=== PATIENT | female | born 1935 | race Caucasian/White ===

== ENCOUNTER 2016-08-08 10:17 | Emergency (ER) | payer MEDICARE ==
[~2016-08-08] VITALS: Ht 167.6 cm; Wt 75.3 kg
[~2016-08-08 10:17] MED LIST: ALLO300T PO; AMIO200T2 PO; ASPI-482 PO; LOSA50TA6 PO; MAGN400T3 PO; METF500T4 PO; METF500T9 PO; METO100T2 PO; METO50TA2 PO; POTA10CA PO; TRIA1CAP3 PO; VITA400C36 PO; WARF2.5T PO
--- NOTE | 2016-08-08 10:41 | EKG ---
[facility] [address] [place] [address] Test Date: 2016-08-08 Test Time: 10:33:48 Pat Name: STEFFEN MORALES Department: Room: Gender: F [employer]: : [id number] Requested By: Yvette MCDONALD Order Number: [id number] Reading MD: Kathi Veliz Measurements Intervals [place] Rate: 54 P: 41 [place]: 176 QRS: -38 QRSD: 90 T: 55 QT: 496 QTc: 472 Interpretive Statements SINUS RHYTHM LEFT ATRIAL ABNORMALITY LEFT ANTERIOR FASCICULAR BLOCK ABNORMAL ECG Electronically Signed On 08-11-2016 15:51:40 CDT by Kathi Veliz
[2016-08-08] MEDS ORDERED: IV NORMAL SALINE 500ML BAG 500 ML IV ONE (11:00)
[2016-08-08] MEDS ORDERED: ONDANSETRON PF 4 MG/2 ML VIAL. IV ONE (11:00)
--- NOTE | 2016-08-08 11:07 | PHYS DOC ---
Past Medical History Past Medical History: A-Fib, CHF, Diabetes-Type II, High Cholesterol, Hypertension Past Surgical History: Angioplasty, Appendectomy, Cholecystectomy, Hysterectomy , Other Additional Past Surgical Histo: STENTS,THYROID REMOVAL,EGD W/ DILATION,MASS REMOVED FROM ESOPHAGUS Alcohol Use: None Drug Use: None Adult General Chief Complaint Chief Complaint: DIZZY/LIGHT HEADED HPI HPI Patient is a 81 year old female who presents with that her for evaluation of nausea and vomiting over the past 2 days. She has one week of worsening chronic cough as well. She also notes months of intermittent dizziness that is being worked up outpatient. States her dizziness is slightly worse today after multiple episodes of emesis. She has slight fatigue. Emesis is nonbloody and nonbilious. She denies dyspnea, abdominal pain, chest pain, palpitations, diaphoresis, headache, vision changes, numbness, tingling, focal weakness, diarrhea, dysuria, fever or chills. Review of Systems Review of Systems Constitutional: Denies fever or chills [] Eyes: Denies change in visual acuity, redness, or eye pain [] HENT: Denies nasal congestion or sore throat [] Respiratory: Denies shortness of breath [] Cardiovascular: No additional information not addressed in HPI [] GI: Denies abdominal pain, bloody stools or diarrhea [] : Denies dysuria or hematuria [] Musculoskeletal: Denies back pain or joint pain [] Integument: Denies rash or skin lesions [] Neurologic: Denies headache, focal weakness or sensory changes [] Endocrine: Denies polyuria or polydipsia [] Current Medications Current Medications Current Medications Medications (Trade) Dose Ordered Sig/Marly Start Time Stop Time Status Last Admin Dose Admin Ondansetron HCl 4 mg 4 mg 1X ONCE 08/08/16 11:00 08/08/16 11:01 DC 08/08/16 11:29 4 MG Sodium Chloride (Iv Sodium Chloride 0.9% 500ml Bag) 500 ml @ 500 mls/hr 1X ONCE 08/08/16 11:00 08/08/16 11:59 DC 08/08/16 11:29 500 MLS/HR Allergies Allergies Allergies Coded Allergies Type Severity Reaction Last Updated Verified morphine Adverse Reaction Intermediate Nausea; SEE COMMENT 11/21/14 Yes Physical Exam Physical Exam Constitutional: Well developed, well nourished, no acute distress, non-toxic appearance. [] HENT: Normocephalic, atraumatic, bilateral external ears normal, oropharynx moist, no oral exudates, nose normal. [] Eyes: PERRLA, EOMI, conjunctiva normal, no discharge. [] Neck: Normal range of motion, no tenderness, supple, no stridor. [] Cardiovascular:Heart rate regular rhythm [] Lungs & Thorax: Bilateral breath sounds clear to auscultation [] Abdomen: Bowel sounds normal, soft, no tenderness. [] Skin: Warm, dry, no erythema, no rash. [] Back: Normal range of motion. [] Extremities: No tenderness, ROM intact, no edema. [] Neurologic: Alert and oriented X 3, normal motor function, normal sensory function, no focal deficits noted, cranial nerves II through XII intact, no nystagmus. [] Psychologic: Affect normal, judgement normal, mood normal. [] Current Patient Data Vital Signs Vital Signs Date Time Temp Pulse Resp B/P Pulse Ox O2 Delivery O2 Flow Rate FiO2 08/08/16 11:05 44 22 200/81 95 Room Air 08/08/16 10:20 96.3 96.3 Lab Values Laboratory Tests Test 08/08/16 10:55 White Blood Count 5.2x10^3/uL (4.0-11.0) Red Blood Count 4.04x10^6/uL (3.50-5.40) Hemoglobin 11.5g/dL (12.0-15.5) L Hematocrit 33.9% (36.0-47.0) L Mean Corpuscular Volume 84fL (79-100) Mean Corpuscular Hemoglobin 29pg (25-35) Mean Corpuscular Hemoglobin Concent 34g/dL (31-37) Red Cell Distribution Width 16.7% (11.5-14.5) H Platelet Count 166x10^3/uL (140-400) Neutrophils (%) (Auto) 69% (31-73) Lymphocytes (%) (Auto) 19% (24-48) L Monocytes (%) (Auto) 11% (0-9) H Eosinophils (%) (Auto) 0% (0-3) Basophils (%) (Auto) 1% (0-3) Neutrophils # (Auto) 3.6x10^3uL (1.8-7.7) Lymphocytes # (Auto) 1.0x10^3/uL (1.0-4.8) Monocytes # (Auto) 0.6x10^3/uL (0.0-1.1) Eosinophils # (Auto) 0.0x10^3/uL (0.0-0.7) Basophils # (Auto) 0.0x10^3/uL (0.0-0.2) Sodium Level 124mmol/L (136-145) L Potassium Level 3.5mmol/L (3.5-5.1) Chloride Level 86mmol/L (98-107) L Carbon Dioxide Level 29mmol/L (21-32) Anion Gap 9 (6-14) Blood Urea Nitrogen 24mg/dL (7-20) H Creatinine 1.3mg/dL (0.6-1.0) H Estimated GFR (Cockcroft-Gault) 39.3 Glucose Level 102mg/dL (70-99) H Calcium Level 9.2mg/dL (8.5-10.1) Total Bilirubin 0.7mg/dL (0.2-1.0) Direct Bilirubin 0.2mg/dL (0.0-0.2) Aspartate Amino Transferase (AST) 21U/L (15-37) Alanine Aminotransferase (ALT) 22U/L (14-59) Alkaline Phosphatase 91U/L (46-116) Total Protein 7.6g/dL (6.4-8.2) Albumin 4.0g/dL (3.4-5.0) Lipase 211U/L (73-393) Laboratory Tests 08/08/16 10:55 Laboratory Tests 08/08/16 10:55 EKG EKG EKG as interpreted by me as normal sinus rhythm, rate 54, no ST-T changes, normal intervals, no ectopy Radiology/Procedures Radiology/Procedures Chest xray as interpreted by me with no acute cardiopulmonary disease process Course & Med Decision Making Course & Med Decision Making Pertinent Labs and Imaging studies reviewed. (See chart for details) Workup is unremarkable. She is feeling better after medications and would like to go home. Return precautions given. She understands and agrees with plan. Dragon Disclaimer Dragon Disclaimer This electronic medical record was generated, in whole or in part, using a voice recognition dictation system. Departure Departure Impression: Primary Impression: Nausea and vomiting Additional Impressions: Cough Dizziness Disposition: 01 HOME, SELF-CARE Condition: STABLE Referrals: CASEY VALDOVINOS MD (PCP) Patient Instructions: Nausea and Vomiting, [id number] Additional Instructions: Take Zofran as needed for nausea. Follow-up with your primary care doctor within one week. Return for any concerns. Scripts Ondansetron (Zofran Odt)4 Mg Tab.rapdis1 Tab SL Q8HRS #10 TAB Prov:Yvette MCDONALD MD 08/08/16 Problem Qualifiers Primary Impression: Nausea and vomiting Vomiting type: unspecified Vomiting Intractability: non-intractable Qualified Code: R11.2 - Nausea with vomiting, unspecified Yvette MCDONALD MD Aug 08, 2016 11:07
[2016-08-08 11:10] LABS: BASO % 1 % (0-3); EOS % 0 % (0-3); HEMATOCRIT 33.9 % (36.0-47.0); HEMOGLOBIN 11.5 g/dL (12.0-15.5); LYMPH % 19 % (24-48); MEAN CORPUSCULAR HEMOGLOBIN 29 pg (25-35); MEAN CORPUSCULAR HGB CONC 34 g/dL (31-37); MEAN CORPUSCULAR VOLUME 84 fL (79-100); MONO % 11 % (0-9); NEUT % 69 % (31-73); PLATELET COUNT 166 x10^3/uL (140-400); RED BLOOD COUNT 4.04 x10^6/uL (3.50-5.40); RED CELL DISTRIBUTION WIDTH 16.7 % (11.5-14.5); WHITE BLOOD COUNT 5.2 x10^3/uL (4.0-11.0)
[2016-08-08 11:18] LABS: CALCIUM 9.2 mg/dL (8.5-10.1); CREATININE 1.3 mg/dL (0.6-1.0); GFR 39.3; POTASSIUM 3.5 mmol/L (3.5-5.1)
--- NOTE | 2016-08-08 11:22 | RAD ---
Chest, 2 views, 08/08/2016: History: Cough Comparison is made to a study from 09/05/2015. The heart size and pulmonary vascularity are normal. There is calcific plaquing of the aorta. No pulmonary infiltrates are seen. There is no evidence of pleural fluid. IMPRESSION: 1. Aortic atherosclerosis. 2. No acute abnormality is detected.
[2016-08-08 11:23] LABS: DIRECT BILIRUBIN 0.2 mg/dL (0.0-0.2); TOTAL BILIRUBIN 0.7 mg/dL (0.2-1.0); TOTAL PROTEIN 7.6 g/dL (6.4-8.2)
[2016-08-08] MEDS ORDERED: ONDA4TAB10 SL (12:17)
[2016-08-08 12:35] VITALS: BP 116/58
== END 2016-08-08 12:45 | disposition home or self-care (01) ==
LOC: ER 10:17
DX: R11.2 Nausea with vomiting, unspecified (principal); R05 Cough; R42 Dizziness and giddiness; R53.83 Other fatigue; I48.91 Unspecified atrial fibrillation; I11.0 Hypertensive heart disease with heart failure; I50.9 Heart failure, unspecified; E11.9 Type 2 diabetes mellitus without complications; E78.00 Pure hypercholesterolemia, unspecified; Z95.5 Presence of coronary angioplasty implant and graft; Z88.5 Allergy status to narcotic agent
CPT/HCPCS: 36415; 71020; 80048; 80076; 83690; 85027; 93005; 96361; 96374; 99285; J2405; J7040